=== PATIENT | female | born 1995 | race American Indian/Alaskan Native ===

== ENCOUNTER 2018-08-19 21:02 | Emergency (ER) | payer SELFPAY ==
[2018-08-19 21:13] VITALS: BP 107/73
[2018-08-19] MEDS ORDERED: ASPIRIN PO ONE (22:16)
[2018-08-19 23:06] LABS: Basophils # (Auto) 0.1 K/mm3 (0.0-0.1); Basophils % (Auto) 0.7 % (0.0-1.8); Eosinophils # (Auto) 0.1 K/mm3 (0.0-0.4); Eosinophils % (Auto) 0.6 % (0.0-4.3); Hematocrit 37.1 % (30.3-42.9); Hemoglobin 12.2 gm/dl (10.1-14.3); Lymphocytes # (Auto) 1.3 K/mm3 (1.2-5.4); Lymphocytes % (Auto) 12.6 % (13.4-35.0); Mean Corpuscular HGB Conc 33 % (30-34); Mean Corpuscular Hemoglobin 28 pg (28-32); Mean Corpuscular Volume 87 fl (79-97); Monocytes # (Auto) 0.8 K/mm3 (0.0-0.8); Monocytes % (Auto) 8.2 % (0.0-7.3); Platelet Count 267 K/mm3 (140-440); Red Blood Count 4.28 M/mm3 (3.65-5.03); Red Cell Distribution Width 14.7 % (13.2-15.2)
[2018-08-19 23:17] LABS: BUN/Creatinine Ratio 20; Blood Urea Nitrogen 10 mg/dL (7-17); Hemolysis Index 184
[2018-08-19 23:43] LABS: Bilirubin,Urine NEG (Negative); Blood,Urine NEG (Negative); Color,Urine Yellow (Yellow); Mucus,Urine FEW /HPF; Protein,Urine <15 mg/dL mg/dL (Negative); Urobilinogen,Urine < 2.0 mg/dL (<2.0)
[2018-08-19 23:44] LABS: HCG Qualitative,Urine Negative (Negative)
--- NOTE | 2018-08-20 00:18 | XRay Report ---
FINAL REPORT EXAM: XR CHEST ROUTINE 2V HISTORY: C/P AND SOB TECHNIQUE: PA and lateral views of the chest were submitted. FINDINGS: The lungs are clear. Pleural fluid is not seen. The heart size is normal. The skeletal structures reveal a mild levoscoliosis of the dorsal spine. IMPRESSION: No acute cardiopulmonary process.
[2018-08-20] MEDS ORDERED: NORCO 5/325 PO ONE (01:21)
--- NOTE | 2018-08-20 01:48 | Emergency Department Report ---
ED Chest Pain HPI - General Chief Complaint: Chest Pain Stated Complaint: CHEST PAIN Time Seen by Provider: 08/20/18 01:18 Source: patient Mode of arrival: Ambulatory Limitations: No Limitations - History of Present Illness Initial Comments: 23 year-old female presents to the emergency department with a complaint of a 3 day history of some pain to the right upper quadrant of the abdomen that radiates up into the chest, right shoulder and right side of the neck. Patient has some intermittent shortness of breath. She denies any tobacco or illicit drug use or abuse. She denies any recent travels, immobility , recent surgeries, being on any control or contraception. She has not taken anything for symptoms prior to presentation. No past medical history. She does not have a primary care physician. Severity scale (0 -10): 3 - Related Data Previous Rx's Medication Instructions Recorded Last Taken Type HYDROcodone/APAP 5-325 [[place] 1 each PO Q6HR PRN #10 tablet 08/20/18 Unknown Rx 5/325] Allergies Allergy/AdvReac Type Severity Reaction Status Date / Time No Known Allergies Allergy Unverified 12/26/14 21:02 Heart Score - HEART Score History: Slightly suspicious EKG: Non-specific Age: < 45 Risk factors: No known risk factors Troponin: < normal limit HEART Score: 1 - Critical Actions Critical Actions: 0-3 pts:0.9-1.7%risk of adverse cardiac event.Candidate for discharge ED Review of Systems ROS: Stated complaint: CHEST PAIN Other details as noted in HPI Comment: All other systems reviewed and negative Constitutional: denies: chills, fever Eyes: denies: eye pain, eye discharge, vision change ENT: denies: ear pain, throat pain Respiratory: shortness of breath. denies: cough Cardiovascular: chest pain. denies: edema Gastrointestinal: abdominal pain. denies: vomiting Genitourinary: denies: urgency, dysuria, discharge Musculoskeletal: arthralgia. denies: joint swelling Skin: denies: rash, lesions Neurological: denies: headache, weakness, paresthesias ED Past Medical Hx - Past Medical History Previous Medical History?: No - Surgical History Past Surgical History?: No - Social History Smoking Status: Never Smoker Substance Use Type: Alcohol - Medications Home Medications: Home Medications Medication Instructions Recorded Confirmed Last Taken Type HYDROcodone/APAP 5-325 [[place] 1 each PO Q6HR PRN #10 tablet 08/20/18 Unknown Rx 5/325] ED Physical Exam - General Limitations: No Limitations - Other Other exam information: GENERAL: The patient is well-developed well-nourished. HENT: Normocephalic. Atraumatic. Patient has moist mucous membranes. EYES: Extraocular motions are intact. Pupils equal reactive to light bilaterally. NECK: Supple. Trachea is midline. CHEST/LUNGS: Clear to auscultation. There is no respiratory distress noted. HEART/CARDIOVASCULAR: Regular. There is no tachycardia. There is no murmur. ABDOMEN: Abdomen is soft. There is some reproducible right upper quadrant abdominal tenderness to palpation. No guarding. Patient has normal bowel sounds. There is no abdominal distention. SKIN: Skin is warm and dry. NEURO: The patient is awake, alert, and oriented. The patient is cooperative. The patient has no focal neurologic deficits. The patient has normal speech. MUSCULOSKELETAL: There is no tenderness or deformity. There is no limitation range of motion. There is no evidence of acute injury. ED Course Vital Signs 08/19/18 08/19/18 08/20/18 21:12 22:12 05:02 Temperature 99.3 F 99.3 F Pulse Rate 92 H 92 H 84 Respiratory 18 18 17 Rate Blood Pressure 107/73 107/73 O2 Sat by Pulse 99 100 96 Oximetry UCHE score - Uche Score Age > 65: (0) No Aspirin use within the Past 7 Days: (0) No 3 or more CAD Risk Factors: (0) No 2 or more Angina events in past 24 hrs: (0) No Known CAD with more than 50% Stenosis: (0) No Elevated Cardiac Markers: (0) No ST Deviation Greater than 0.5mm: (0) No UCHE Score: 0 ED Medical Decision Making - Lab Data Result diagrams: 08/19/18 22:29 08/19/18 22:29 - EKG Data -: EKG Interpreted by Me EKG shows normal: sinus rhythm, axis, intervals, QRS complexes (RBBB), ST-T waves Rate: normal - EKG Data When compared to previous EKG there are: previous EKG unavailable Interpretation: other (RBBB) - Radiology Data Radiology results: report reviewed, image reviewed interpreted by me: Chest x-ray does not show any acute process. There are no pleural effusions, obvious pneumonia and there is no pneumothorax. EXAM: US ABDOMEN LIMITED HISTORY: upper abd pain TECHNIQUE: Routine imaging was obtained of the right upper outer quadrant. FINDINGS: The gallbladder is normal in size and wall thickness. The gallbladder wall thickness is 1.5 mm. Stones are not seen. The common bile duct measures 1.6 mm in diameter. The liver is normal in size and echotexture. Free fluid is not seen. The pancreas is not well seen because of bowel gas. The right kidney is normal in size contour and echotexture measuring 10.6 cm x 4.4 cm x 6.2 cm. There is no evidence of hydronephrosis. The visualized portion of the abdominal aorta measures 1.6 cm in diameter which is normal. IMPRESSION: Normal-appearing gallbladder and biliary tree. No evidence of right-sided hydronephrosis. Transcribed By: CHUYITA Dictated By: SHERI STILL MD Electronically Authenticated By: SHERI STILL MD Signed Date/Time: 08/20/18 0410 - Medical Decision Making This patient has presented with a few days of some pain that starts in the right upper quadrant of her abdomen and goes up towards the right side of the chest, right shoulder, right neck and right side of the back. Her EKG shows a right bundle branch block but no morphology consistent with ST elevation RI. This was repeated a few hours later and is unchanged. Patient's labs have been mostly unremarkable. Negative troponins 2. She had a d-dimer less than 250 which is a low suspicion for pulmonary embolism. On top that the patient does not have any significant tachycardia, any hypoxia. She also does not have any of the risk factors for thromboembolism such as immobility, recent surgery or recent travel or oral contraceptives. Patient's labs regarding her abdominal pain of also been unremarkable. No leukocytosis, normal belly labs such as bilirubin, lipase and LFTs. An ultrasound was done that did not show any signs of any cholelithiasis, cholecystitis or any biliary tree abnormalities. No signs of any right-sided renal abnormalities such as hydronephrosis. The patient was given a [place] for her discomfort with great improvement. A lot of her discomfort is positional. Vital signs and stable throughout her ED course. For all these reasons the patient appears safe for discharge home at this time. She was given a referral for cardiology to follow-up in regards to her right bundle branch block found on EKG since we do not have any previous EKGs for comparison. She was also given multiple referrals for primary care. She was instructed to return to the emergency Department with any worsening of her symptoms or any acute distress. - Differential Diagnosis costochondritis, RI, cholelithiasis, cholecystitis Critical Care Time: No Critical care attestation.: If time is entered above; I have spent that time in minutes in the direct care of this critically ill patient, excluding procedure time. ED Disposition Clinical Impression: Right-sided chest pain, Right bundle branch block (RBBB) on electrocardiogram ( ECG), Right upper quadrant abdominal pain Disposition: TO HOME OR SELFCARE Is pt being admited?: No Condition: Stable Instructions: Chest Pain (ED), Costochondritis (ED), Abdominal Pain (ED) Additional Instructions: Please follow up with a primary care physician in the next few days. I will give you multiple primary care clinics in the area. I'm also giving you a referral for a local cyber security architect, Dr. Zayas, to follow up regarding your EKG findings of a right bundle branch block. Return to the emergency Department with any worsening of your symptoms or any acute distress. You have been prescribed a medication that is sedating and therefore should not be taken prior to driving, working, and responsible for children and in no way should be mixed with alcohol of any quantity. Prescriptions: HYDROcodone/APAP 5-325 [[place] 5/325] 1 each PO Q6HR PRN #10 tablet PRN Reason: Pain Referrals: HERMELINDO ZAYAS MD [Staff Physician] - 3-5 Days [facility] [Outside] - 3-5 Days [facility] [Outside] - 3-5 Days [facility] [Outside] - 3-5 Days Forms: Accompanied Note, Work/School Release Form(ED) Time of Disposition: 04:36
[2018-08-20 03:04] LABS: Alanine Aminotransferase 12 units/L (7-56); Albumin 4.5 g/dL (3.9-5); Lipase 21 units/L (13-60)
[2018-08-20 03:06] LABS: Bilirubin,Direct < 0.2 mg/dL (0-0.2)
--- NOTE | 2018-08-20 04:16 | Ultrasound Report ---
FINAL REPORT EXAM: US ABDOMEN LIMITED HISTORY: upper abd pain TECHNIQUE: Routine imaging was obtained of the right upper outer quadrant. FINDINGS: The gallbladder is normal in size and wall thickness. The gallbladder wall thickness is 1.5 mm. Stones are not seen. The common bile duct measures 1.6 mm in diameter. The liver is normal in size and echotexture. Free fluid is not seen. The pancreas is not well seen because of bowel gas. The right kidney is normal in size contour and echotexture measuring 10.6 cm x 4.4 cm x 6.2 cm. There is no evidence of hydronephrosis. The visualized portion of the abdominal aorta measures 1.6 cm in diameter which is normal. IMPRESSION: Normal-appearing gallbladder and biliary tree. No evidence of right-sided hydronephrosis.
== END 2018-08-20 05:02 | disposition home or self-care (01) ==
LOC: ED 21:02
DX: I45.10 Unspecified right bundle-branch block (principal)
CPT/HCPCS: 36415; 71046; 76705; 80048; 80074; 81001; 81025; 83690; 84484; 85025; 85379; 93005; 93010